=== PATIENT | female | born 1980 | race Caucasian/White ===

== ENCOUNTER → 2020-06-17 | Outpatient (CLI) | payer OTHER ==
[~2020-06-17] MED LIST: COZAAR100 MG PO; LEVEMIR100 UNIT/1 SQ; NOVOLOG100 UNIT/1 SQ; PRAVACHOL80 MG PO; PRILOSEC OTC20 MG PO
[2020-06-19 10:14] LABS: COMPLEMENT C3, SERUM 162 mg/dL (82-167); COMPLEMENT C4, SERUM 37 mg/dL (12-38); RHEUMATOID ARTHRITIS FACTOR <10.0 IU/mL (0.0-13.9)
[2020-06-19 13:14] LABS: ANGIOTENSIN-CONVERTING ENZYME 32 U/L (14-82)
[2020-06-20 00:09] LABS: CCP ANTIBODIES IGG/IGA 1 units (0-19)
== END ==
LOC: LAB 14:20
PROVIDERS: Nurse Practitioner Family
DX: R76.8 Other specified abnormal immunological findings in serum (principal); R79.89 Other specified abnormal findings of blood chemistry; Z87.898 Personal history of other specified conditions; Z86.39 Personal history of other endocrine, nutritional and metabolic disease
CPT/HCPCS: 81001; 82164; 82550; 82570; 83520; 84156; 84439; 84443; 85652; 86140; 86160; 86162; 86200; 86431

== ENCOUNTER → 2020-10-01 | Outpatient (CLI) | payer OTHER | LOC: KOH-I 09-08 09:15 | DX: R13.10 Dysphagia, unspecified (principal); M75.00 Adhesive capsulitis of unspecified shoulder; M25.619 Stiffness of unspecified shoulder, not elsewhere classified; M25.511 Pain in right shoulder; R10.84 Generalized abdominal pain; R14.0 Abdominal distension (gaseous); R11.0 Nausea | CPT/HCPCS: 73221; 76536; 76705 ==

== ENCOUNTER → 2020-10-08 | Outpatient (CLI) | payer OTHER ==
[2020-10-08 15:54] LABS: HEMOGLOBIN 11.3 gm/dl (12.3-15.3); RED BLOOD COUNT 4.37 M/UL (4.00-5.10); WHITE BLOOD COUNT 9.4 K/UL (4.5-11.0)
[2020-10-08 16:19] LABS: BUN/CREATININE RATIO 26 (0-10)
[2020-10-09 10:15] LABS: CREATININE, URINE 98.9 mg/dL (Not Estab.)
== END ==
LOC: LAB 13:27
PROVIDERS: Nurse Practitioner Family
DX: Z00.00 Encounter for general adult medical examination without abnormal findings (principal); E10.65 Type 1 diabetes mellitus with hyperglycemia; K21.9 Gastro-esophageal reflux disease without esophagitis; E78.00 Pure hypercholesterolemia, unspecified; R53.83 Other fatigue; D50.9 Iron deficiency anemia, unspecified; M25.50 Pain in unspecified joint; E53.8 Deficiency of other specified B group vitamins; E55.9 Vitamin D deficiency, unspecified; Z79.4 Long term (current) use of insulin; I10 Essential (primary) hypertension
CPT/HCPCS: 80053; 80061; 82043; 82570; 82607; 82728; 83036; 84439; 84443; 85025

== ENCOUNTER → 2020-11-02 | Outpatient (CLI) | payer OTHER | LOC: NM 09:00 | DX: R10.84 Generalized abdominal pain (principal); R14.0 Abdominal distension (gaseous); R11.0 Nausea | CPT/HCPCS: 78227; A9537; J2805 ==

== ENCOUNTER → 2020-11-17 | Outpatient (CLI) | payer OTHER | LOC: NM 09:00 | DX: R10.84 Generalized abdominal pain (principal); R14.0 Abdominal distension (gaseous); R11.2 Nausea with vomiting, unspecified | CPT/HCPCS: 78264; A9541 ==

== ENCOUNTER → 2020-12-09 | Outpatient (CLI) | payer OTHER ==
[2020-12-09 15:40] LABS: HEMOGLOBIN 13.3 gm/dl (12.3-15.3); RED BLOOD COUNT 4.74 M/UL (4.00-5.10); WHITE BLOOD COUNT 9.7 K/UL (4.5-11.0)
[2020-12-10 11:14] LABS: CREATININE, URINE 82.9 mg/dL (Not Estab.)
== END ==
LOC: LAB 14:14
PROVIDERS: Nurse Practitioner Family
DX: R11.2 Nausea with vomiting, unspecified (principal); D64.9 Anemia, unspecified; D50.9 Iron deficiency anemia, unspecified; E10.65 Type 1 diabetes mellitus with hyperglycemia
CPT/HCPCS: 36415; 81001; 82043; 82570; 82728; 83036; 85025

== ENCOUNTER → 2021-02-11 | Outpatient (CLI) | payer OTHER ==
[2021-02-11 13:15] LABS: HEMOGLOBIN 14.2 gm/dl (12.3-15.3); RED BLOOD COUNT 4.91 M/UL (4.00-5.10); WHITE BLOOD COUNT 10.6 K/UL (4.5-11.0)
[2021-02-12 07:10] LABS: ESTIM. AVG GLU (EAG) 174 mg/dL (.); HEMOGLOBIN A1C 7.7 % (4.8-5.6)
[2021-02-12 08:13] LABS: A/G RATIO 1.5 (1.2-2.2); ALKALINE PHOSPHATASE, S 99 IU/L (44-121); ALT (SGPT) 11 IU/L (0-32); AST (SGOT) 16 IU/L (0-40); BILIRUBIN, TOTAL 0.5 mg/dL (0.0-1.2); BUN 20 mg/dL (6-24); BUN/CREATININE RATIO 21 (9-23); CALCIUM, SERUM 9.6 mg/dL (8.7-10.2); CARBON DIOXIDE, TOTAL 19 mmol/L (20-29); CHLORIDE, SERUM 96 mmol/L (96-106); CHOLESTEROL, TOTAL 242 mg/dL (100-199); CREATININE, SERUM 0.95 mg/dL (0.57-1.00); CREATININE, URINE 56.1 mg/dL (Not Estab.); EGFR IF AFRICN AM 87 (>59); EGFR IF NONAFRICN AM 75 (>59); FERRITIN 223 ng/mL (15-150); GLOBULIN, TOTAL 2.8 g/dL (1.5-4.5); GLUCOSE, SERUM 205 mg/dL (65-99); HDL CHOLESTEROL 37 mg/dL (>39); LDL CHOLESTEROL CALC 163 mg/dL (0-99); LDL/HDL RATIO 4.4 ratio (0.0-3.2); POTASSIUM, SERUM 4.2 mmol/L (3.5-5.2); PROTEIN, TOTAL, SERUM 7.1 g/dL (6.0-8.5); SODIUM, SERUM 135 mmol/L (134-144); T. CHOL/HDL RATIO 6.5 ratio (0.0-4.4); TRIGLYCERIDES 225 mg/dL (0-149); TSH 0.507 uIU/mL (0.450-4.500); VITAMIN D, 25-HYDROXY 33.7 ng/mL (30.0-100.0)
== END ==
LOC: LAB 12:24
PROVIDERS: Nurse Practitioner Family
DX: Z00.00 Encounter for general adult medical examination without abnormal findings (principal); E10.65 Type 1 diabetes mellitus with hyperglycemia; R10.13 Epigastric pain; G89.29 Other chronic pain; E10.43 Type 1 diabetes mellitus with diabetic autonomic (poly)neuropathy; K31.84 Gastroparesis; K21.9 Gastro-esophageal reflux disease without esophagitis; I10 Essential (primary) hypertension; E53.8 Deficiency of other specified B group vitamins; R53.83 Other fatigue; E55.9 Vitamin D deficiency, unspecified; D50.9 Iron deficiency anemia, unspecified
CPT/HCPCS: 36415; 80053; 80061; 82043; 82570; 82607; 82728; 83036; 84439; 84443; 85025

== ENCOUNTER → 2021-10-08 | Outpatient (CLI) | payer OTHER ==
[2021-10-08 14:09] LABS: HEMOGLOBIN 13.7 gm/dl (12.3-15.3); RED BLOOD COUNT 4.94 M/UL (4.00-5.10); WHITE BLOOD COUNT 11.9 K/UL (4.5-11.0)
[2021-10-08 14:29] LABS: BUN/CREATININE RATIO 25 (0-10)
[2021-10-09 10:13] LABS: CREATININE, URINE 116.8 mg/dL (Not Estab.)
== END ==
LOC: LAB 13:43
PROVIDERS: Nurse Practitioner Family
DX: I10 Essential (primary) hypertension (principal); E10.43 Type 1 diabetes mellitus with diabetic autonomic (poly)neuropathy; K31.84 Gastroparesis; R10.13 Epigastric pain; R53.83 Other fatigue; E53.8 Deficiency of other specified B group vitamins; E55.9 Vitamin D deficiency, unspecified; D50.9 Iron deficiency anemia, unspecified
CPT/HCPCS: 36415; 80053; 80061; 82043; 82570; 82607; 82728; 83036; 84439; 84443; 85025